=== PATIENT | female | born 1970 | race Caucasian/White ===

== ENCOUNTER → 2022-02-01 15:23 | Outpatient (CLI) | payer OTHER, SELFPAY ==
[2022-02-01 17:25] LABS: Follicle Stimulating Hormone 49.9 mIU/mL
== END ==
PROVIDERS: Family Provider Family Medicine; PCP Nurse Practitioner; Referring Provider Obstetrics & Gynecology; Visit Provider Obstetrics & Gynecology
DX: R23.2 Flushing (principal)
CPT/HCPCS: 36415; 83001

== ENCOUNTER 2022-05-26 08:14 | Day surgery (SDC) | payer OTHER, SELFPAY ==
[2022-05-19 15:19] VITALS: BMI 31.8
[2022-05-26] VITALS (9 sets, daily range): BP systolic 101–127; BP diastolic 59–77; PULSE 69–97; RESP 16; TEMP 36.1–37.2; O2SAT 94–100; BMI 31.8
--- NOTE | 2022-05-26 | PATH_ITS ---
[facility] Accession Number: [id number] No. of containers..01 Tissue . 01 Material submitted: . uterus - UTERUS AND BILATERAL FALLOPIAN TUBES . 01 Diagnosis: Uterus, Bilateral Fallopian Tubes; Hysterectomy and bilateral Salpingectomy: . Endo-myometrium: Benign, non-proliferative endometrium without evidence of hyperplasia, atypia or malignancy. Adenomyosis present. Benign leiomyomas, up to 3.3 cm in greatest diameter, see comment. Benign bilateral fallopian tubes and paratubal cysts. Negative for atypia and malignancy. MRV 05/30/2022 1614 Local . 01 Comment: Microscopic examination of the leiomyomas, on industrial relations representative sections, reveals degenerative changes and hyalinizing fibrosis. There is no histologic evidence for significant cytologic atypia, increased mitotic activity, necrosis, or malignancy. . 01 Electronically signed: . Chioma Selby MD, Pathologist NPI- [id number] . 01 Gross description: . The specimen is received in formalin labeled with the patient's name, , and uterus and bilat. fallopian tubes, and consists of a fragmented uterus (108 grams and aggregating to 9.5 x 9.0 x 5.8 cm), with attached fimbriated fallopian tube (4.7 x 0.8 cm), with detached fimbriated fallopian tube (2.5 x 0.7 cm), with no additional adnexa or cervix identified. The serosa is yousif and roughened with diffuse areas of hemorrhage measuring up to 3.1 cm in greatest dimension. The presumed endometrium is hemorrhagic and averages less than 0.1 cm thick with no polyps or lesions identified. The myometrium is yousif and trabecular and significant for multiple well-circumscribed white whorled nodules measuring up to 3.3 cm in greatest dimension without hemorrhage or necrosis identified. . The attached fallopian tube has congested smooth serosa with a disrupted lumen and a cystic structure near the fimbriated end measuring 0.6 cm in greatest dimension filled with clear gelatinous material. Sectioning reveals an incomplete stellate lumen. The shorter fallopian tube has yousif smooth serosa with a cystic structure near the fimbriated end filled with clear serous fluid. Sectioning reveals an unremarkable stellate lumen. Pile Driver sections are submitted as follows: A1: Presumed endometrium. A2: Hemorrhagic serosa. A3-A4: Pile Driver nodules. A5: Longer fallopian tube to include one half of bisected fimbriae and cross-sections. A6: [place] fallopian tube to include one half of bisected fimbriae and cross sections. ([id number]) /EMMA 05/27/2022 1006 Local . 01 Pathologist provided ICD-10: R10.2, D25.9 . 01 CPT . 861811 Specimen Comment: A courtesy copy of this report has been sent to [phone] Performed at: 01 [facility] [address] [place] [address], [place], [place] [id number] MD Romaine Kowalski MD Phone: [phone]
[2022-05-26] MEDS: LACTATED RINGERS 1,000 ML 100 ML IV (08:52)
[2022-05-26 09:06] LABS: COVID19 -Nasal RAPID Negative (Negative)
--- NOTE | 2022-05-26 09:32 | P.HPOB_ITS ---
History of Present Illness History of Present Illness Reason for admission: pelvic pain Narrative: Dianna Costa is a 52 year old female 1 para 0 with a fibroid uterus and dysmenorrhea. She presents for a laparoscopic supracervical hysterectomy with bilateral salpingectomy. Patient has a history of a DVT which resulted in a saddle embolus after a hysteroscopy. She saw Hematology and had a workup and was positive for MTHFR. She has been on a baby aspirin a day. She stopped this 1 week ago. FORMERLY [facility], [facility] Medical History (Updated 05/19/22 @ 15:22 by Shaneka Jasso RN) Allergies (~1981) Anemia (~2017) Cervical spine disease (~1999) Chicken pox (~1969) Chlamydia (~1987) Chronic back pain (~1999) Deep vein thrombosis Foot pain (~1999) Headache (~1994) Heavy menstrual period Hemorrhoid (~1988) History of uterine fibroid Hypertension Injury of meniscus of knee Migraines (~1994) Painful menstrual periods Pulmonary embolism Pulmonary hypertension Stress incontinence (~2004) Surgical History (Updated 11/30/21 @ 18:49 by Fouzia Light) Anesthesia History of cholecystectomy (~2011) History of surgery of uterus (~2017) S/P LASIK surgery (~2002) Family History (Updated 11/30/21 @ 18:54 by Fouzia Light) Father History of heart disease Hypertension Hyperlipidemia Mental health problem Mother Hypertension Hyperlipidemia Mental health problem Brother Hypertension Hyperlipidemia Sister Hypertension Hyperlipidemia Grandfather Alcoholism Grandmother Cancer Grandfather History of heart disease Hyperlipidemia Hypertension Mental health problem Grandmother Hyperlipidemia Hypertension Social History household members: none Smoking Status: Never smoker alcohol intake: current Meds Home Medications and Allergies Home Medications Medication Instructions Recorded Confirmed Type nadolol 80 mg tablet 80 mg PO BID ##0 10/10/11 05/26/22 History naproxen sodium 220 mg tablet 220 mg PO PRN ##0 10/13/11 05/26/22 History atorvastatin 20 mg tablet 20 mg PO DAILY 12/01/21 05/26/22 History ondansetron 4 mg disintegrating 4 mg PO Q8H 12/01/21 05/26/22 History tablet sumatriptan succinate 50 mg tablet 100 mg PO PRN #0 tabs 12/01/21 05/26/22 History (Imitrex) trazodone 50 mg tablet 50 mg PO BEDTIME PRN Insomnia 12/01/21 05/26/22 History albuterol 90 mcg/actuation aerosol 90 mcg inhalation PRN PRN Wheezing 05/26/22 05/26/22 History inhaler aspirin 81 mg capsule 81 mg PO DAILY 05/26/22 05/26/22 History Allergies Allergy/AdvReac Type Severity Reaction Status Date / Time No Known Drug Allergies Allergy Verified 05/26/22 08:32 Exam Vital Signs (past 8 hours): - 05/26/22 08:37 Temperature 96.9 F L Pulse Rate 97 H Respiratory Rate 16 Blood Pressure 118/72 Pulse Oximetry 99 Oxygen Delivery Method Room Air Oxygen Delivery Method Room Air Narrative Exam Narrative: HEENT: No thyromegaly, no anterior cervical or supraclavicular lymphadenopathy. Lungs:Clear to auscultation bilaterally, no wheezes. Cardiovascular: Regular rate and rhythm, no murmurs, rubs, or gallops. Abdomen: Well-healed laparoscopy scars. No hepatosplenomegaly. No masses palpable. External genitalia: Normal Vagina: Normal Cervix: Normal Bimanual exam: 9 Week size anteverted uterus. Mobile. No adnexal masses or tenderness Extremities: No edema Objective Labs Labs: Laboratory Results - last 24 hr 05/26/22 08:26 SARS-CoV-2 (PCR) Negative Assessment & Plan Assessment & Plan narrative: Assessment: 52-year-old 1 para 0 with an enlarged fibroid uterus and dysmenorrhea Positive MTHFR mutation Plan: Laparoscopic supracervical hysterectomy with bilateral salpingectomy The risks, benefits, and alternatives to the procedure were explained to the patient. The risks including bleeding, infection, injury to the bowel, bladder, or ureters. She also understands that there is a possibility of a DVT/PE. She understands all of these risks and agrees to proceed. A full PAR- Q was held and consent form was signed. We will begin Lovenox treatment on postop day #1 Time Spent With Patient Time with patient: less than 30 minutes Critical Care time: I spent a total of [] minutes of critical care time on this patient's care today; this time is exclusive of procedural time.
--- NOTE | 2022-05-26 09:36 | PM.PREOP ---
Pre-operative Note COVID-19 Criteria for continued procedure: Non-surgical alternatives not available or appropriate per current SOC Interval Note History & Physical reviewed/Exam performed by Physician: Yes Changes to H&P: No H&P completed within 30 days and has changed as indicated here:: 05/26/22
[2022-05-26] MEDS: CEFAZOLIN 2 GM/100 ML PREMIX 100 ML IV (09:45)
--- NOTE | 2022-05-26 10:18 | SUR.OPER ---
Lithotomy on padded OR bed. Lometa Pad Positioner under torso. Head on pillow, arms padded and tucked at sides. Legs secured in padded yellow fins stirrups.
[2022-05-26] MEDS: ROPIVACAINE 0.2% PF 2 MG/ML 10ML AMP 20 ML INJ (10:28)
[2022-05-26] MEDS: BUPIVACAINE 0.25% (PF) VIAL 5 ML SUBCUT (10:31)
[2022-05-26] MEDS: OXYCODONE/ACETAMINOPHEN 5/325 TABLET 1 TAB PO ×2 (11:46→12:19)
[2022-05-26] MEDS: ONDANSETRON 4 MG/2 ML INJ IV (11:47)
--- NOTE | 2022-05-26 11:49 | P.OP_ITS ---
Operative Date/Time/Diagnoses Date of procedure: 05/26/22 Time of procedure: 11:50 Pre-op diagnosis: Enlarged fibroid uterus Dysmenorrhea Post-op diagnosis: same Procedure & Clinicians Procedure: Procedures Operation Date: 05/26/22 09:45 Actual Procedure Side Surgeon p Laparoscopic Supracervical Hysterectomy w.removal of tubes Greta Hooper MD Indications: Enlarged fibroid uterus Dysmenorrhea Surgeon: Greta Hooper Visitor Use Assistant: Chanda Lovell Anesthesia Type: General and Local Operative Notes Findings: 10 week size multifibroid uterus Normal tubes and ovaries Normal liver Normal appendix Closure Type: primary Specimen(s): left tube, right tube and uterus Applied: catheter (Removed at the end of the case) Estimated blood loss (mL): 75 Blood products transfused: none Procedure in detail: The patient was taken to the operating room where she was placed in the dorsal supine position. After adequate general endotracheal anesthesia was achieved, she was placed in the dorsal lithotomy position, and prepped and draped in the usual sterile fashion. A timeout was performed. A bivalve speculum was placed into the vagina and the anterior lip of the cervix grasped with a single-tooth tenaculum. The cervical os was sequentially dilated until the ZUMI uterine manipulator could pass easily into the endometrial cavity. The single-tooth tenaculum was removed from the anterior lip of the cervix, and the bivalve speculum was removed from the vagina. Attention was then turned to the abdomen where 6 mL of quarter percent Marcaine with epinephrine were injected in the umbilical fold. A 5 mm incision was made. The Verees needle was placed into the peritoneal cavity, and its placement confirmed by aspiration and drop test. The Verees needle was removed. A 5 mm trocar was placed without difficulty. 2 other incisions were made 4 cm lateral to the umbilicus after 5 mL of quarter percent Marcaine with epinephrine were injected. These were 5 mm incisions. Two 5 mm trocars were placed under direct visualization. The right tube was grasped with an atraumatic grasper. Using the Powerseal, the mesosalpinx was cauterized and cut all the way down to the cornua of the uterus. The cornua of the uterus was then grasped with an atraumatic grasper. The utero-ovarian ligaments were cauterized and cut. The round ligament and broad ligament was cauterized and cut with the Powerseal. Hemostasis was achieved. The bladder flap was created using the Powerseal with cautery and cut shelter across. The uterine arteries on the right side were extensively cauterized with the Powerseal. All of this was repeated on the left side. The remainder of the bladder flap was created using the Powerseal, and the bladder taken down off the lower uterine segment and cervix. Using the Linaloop, the cervix was amputated from the uterus 2 cm above the uterosacral ligaments, after the ZUMI uterine manipulator was removed from the uterus. There was a small amount of bleeding noted from the posterior edge of the cervix, and this was cauterized for hemostasis. A sponge stick was placed into the vagina. 6 mL of quarter percent Marcaine with epinephrine were injected above the pubic symphysis. A 12 mm trocar was placed. A large Endobag was placed through the suprapubic trocar and the uterus and tubes were placed into the Endobag. The trocar was removed. The uterus was grasped with a Gifty. The Ezra was placed into the endobag. The uterus was hand morcellated in approximately 10 pieces. The Endobag and Ezra were removed from the peritoneal cavity. The pelvis was copiously irrigated with warm normal saline. No bleeding was noted. 20 cc of 0.2% ropivacaine were placed over the pedicles. The instruments were removed from the abdomen. The CO2 was allowed to escape. The suprapubic incision was closed on the fascia with 0 Vicryl in a running fashion. Two simple interrupted sutures with 3-0 Vicryl were placed to reapproximate the subcutaneous layer. All of the incisions were closed with 4-0 Biosyn in a subcuticular fashion. Steri strips and Allevyn dressings were placed over the incisionsl. The moistened sponge stick was removed from the vagina. Sponge, lap, and instrument counts were correct x-2. The patient tolerated the procedure well, was taken to PACU in stable condition. Complications: none Post-operative Condition: stable Disposition: PACU Plan for aftercare: To Acute Care after recovery
--- NOTE | 2022-05-26 12:44 | SUR.PHASEI ---
Patient in holding pattern due to unavailable beds in the hospital. Transfer orders placed . Explained situation to patient. V/U. Warm blankets provided and additional pain medication given. Offered lunch tray but patient declines at this time. Sister at bedside.
--- NOTE | 2022-05-26 13:56 | SUR.PHASEI ---
Patient remains in holding area in PACU due to lack of inpatient room. VSS. Abdominal dressings remain clean, dry and intact. Kitty-pad is dry. Pain 2/10 and nausea is resolved. Diet tray ordered. Sister remains at bedside.
--- NOTE | 2022-05-26 15:49 | SUR.PHASEI ---
Ambulated to bathroom with minimal assistance. Report called to SANTA Kapoor in L&D.
[2022-05-26] MEDS: KETOROLAC 30 MG/ML VIAL IV ×2 (15:56→21:36)
[2022-05-26] MEDS: OXYCODONE IR 5 MG TABLET PO ×2 (15:56→21:19)
--- NOTE | 2022-05-26 18:03 | PC.NURSE ---
patient up to bathroom,voided,ambulates independly, pad in place,denies any pain or discomfort.
[2022-05-26] MEDS: ATORVASTATIN 20 MG TABLET PO (21:19)
[2022-05-26] MEDS: DOCUSATE 100 MG CAPSULE 200 MG PO (21:19)
[2022-05-26] MEDS: TRAZODONE 50 MG TABLET PO (22:41)
--- NOTE | 2022-05-26 22:55 | PC.NURSE ---
pt. has 4 2x2 dressings on abd. Three horizontal above umbilicus which are CDI. One lower right abd with about a 3-4mm amound of old drainage noted on previous shift that is unchanged.
[2022-05-27 03:30] VITALS: BP 120/57; PULSE 73; RESP 15; TEMP 36.3; O2SAT 100
[2022-05-27] MEDS: OXYCODONE IR 5 MG TABLET PO ×2 (03:33→08:47)
[2022-05-27] MEDS: KETOROLAC 30 MG/ML VIAL IV (03:34)
[2022-05-27 03:57] LABS: Add Manual Diff / Slide Review NO; Basophils Absolute Auto 0 /uL (0-100); Basophils Percent Auto 0.3 % (0-2); Eosinophils Absolute Auto 0 /uL (0-450); Eosinophils Percent Auto 0.1 % (2-4); Hematocrit 41.2 % (36-46); Hemoglobin 13.7 g/dL (12.0-16.0); Lymphocytes Absolute Auto 1900 /uL (1100-4500); Lymphocytes Percent Auto 13.5 % (25-40); Mean Corpuscular HGB Conc 33.2 % (30-36); Mean Corpuscular Hemoglobin 30.8 PG (26-34); Mean Corpuscular Volume 92.6 fL (80-100); Monocytes Absolute Auto 1000 /uL (0-900); Monocytes Percent Auto 7.3 % (3-14); Neutrophils Absolute Auto 10900 /uL (1500-7000); Neutrophils Percent Auto 78.8 % (50-75); Platelet Count 258 X10^3/uL (150-400); Red Blood Cell Count 4.45 X10^6/uL (4.0-5.2); Red Cell Distribution Width 12.8 % (11.6-14.8); White Blood Cell Count 13.8 X10^3/uL (4.5-11.0)
--- NOTE | 2022-05-27 04:00 | PC.NURSE ---
dressing status is unchanged since last assessment. Pt. just reports there is more tenderness. No s/s of infection noted.
[2022-05-27 06:00] VITALS: BP 131/65; PULSE 76; RESP 16; TEMP 36.8; O2SAT 98
[2022-05-27] MEDS: DOCUSATE 100 MG CAPSULE 200 MG PO (08:47)
[2022-05-27] MEDS: ACETAMINOPHEN 325 MG TABLET 650 MG PO (08:51)
[2022-05-27 09:07] VITALS: BP 137/56; PULSE 66
[2022-05-27] MEDS: ENOXAPARIN 40 MG/0.4 ML SYRINGE SUBCUT (09:08)
--- NOTE | 2022-05-27 09:11 | PC.NURSE ---
0851 patient requested pain medication for incision at a pain scale of 5/10; gave tylenol and oxycodone,levonox 40mg subcutaneous and he nadol.Alert and oriented,dressings x 4 intact; very minute spot of old blood on lower dressing,VSS,afebrile and walks independently.
--- NOTE | 2022-05-27 09:41 | PC.NURSE ---
Ambulating in hallway,pain relieved with medication.
--- NOTE | 2022-05-27 10:08 | PC.NURSE ---
In discontinued in L.arm; patient tolerated well.
--- NOTE | 2022-05-27 15:28 | PC.NURSE ---
1230 Is able to be independent with ADLs, no c/o of pain or discomfort,voiding without difficulty,denies SOB,no nausea/vomiting.removed IV,new dressing to lower wound,no s/s infection.Discharged to home with teaching instructions,offered w/c to get to her vehicle.Alert and oriented x3.
== END 2022-05-27 12:50 | disposition home or self-care (01) ==
LOC: OR 08:16 → AC 08:16 → LABOR 16:33
PROVIDERS: Family Provider Family Medicine; PCP Nurse Practitioner; Referring Provider Obstetrics & Gynecology; Visit Provider Obstetrics & Gynecology
PROC: 0UT94ZL Resection of Uterus, Supracervical, Percutaneous Endoscopic Approach (ICD-10-PCS; CPT 58542; principal; 2022-05-26 09:45)
DX: D25.9 Leiomyoma of uterus, unspecified (principal); Z20.822 Contact with and (suspected) exposure to COVID-19; N83.8 Other noninflammatory disorders of ovary, fallopian tube and broad ligament; N80.03 Adenomyosis of the uterus
CPT/HCPCS: 58542; 85025; 87635; C9803; J0690; J1100; J1650; J1885; J2250; J2405; J2704; J2795; J3010; J3490